=== PATIENT | male | born 1975 | race Caucasian/White ===

== ENCOUNTER 2021-08-07 16:19 | Observation (INO) | payer BC, SELFPAY ==
[2021-08-07] VITALS (9 sets, daily range): BP systolic 104–139; BP diastolic 55–87; PULSE 78–117; RESP 14–18; TEMP 36.4–37; O2SAT 96–100; BMI 31.5
--- NOTE | ~2021-08-07 | CT_ITS ---
EXAMINATION: CT HEAD WITHOUT CONTRAST CLINICAL INFORMATION: Sudden onset spinning, dizziness, nausea and vomiting. COMPARISON: None. TECHNIQUE: Contiguous axial imaging was performed from the skull base to vertex without intravenous administration of contrast. This CT examination was performed using dose optimization techniques as appropriate, variously including the following: *Automated exposure control *Adjustment of mA and/or kV according to patient size (this includes techniques or standardized protocols for targeted exams where dose is matched to indication/reason for exam; i.e. extremities or head) *Use of iterative reconstruction technique DLP: 746 mGy-cm FINDINGS: There is no evidence of acute intracranial hemorrhage or territorial infarction. No abnormal mass effect or midline shift is seen. Fisher to white matter differentiation is well preserved. No extra-axial fluid collections are identified. The ventricles are normal in size. There is no abnormal attenuation within the brain parenchyma. The osseous structures and soft tissues are normal. Mild mucosal thickening of the paranasal sinuses with a small air-fluid level in the right maxillary sinus. Right mastoid effusion. CT/CT head/brain wo con IMPRESSION: No acute intracranial pathology. Right mastoid effusion. Mild mucosal thickening of the paranasal sinuses.
[2021-08-07 16:48] LABS: MANUAL DIFF FLAG NO
[2021-08-07 16:52] LABS: Basophils Absolute Auto 0.1 X10*3/uL (0.0-0.2); Basophils Percent Auto 0.7 % (0-2); Eosinophils Absolute Auto 0.2 X10*3/uL (0.0-0.4); Eosinophils Percent Auto 1.4 % (0-4); Hematocrit 41.9 % (42-52); Hemoglobin 14.8 g/dl (14.0-18.0); Imm Gran Abs Auto 0.06 X10*3/uL (0.00-0.03); Imm Gran Pct Auto 0.5 % (0.0-0.4); Lymphocytes Percent Auto 31.2 % (20-40); Mean Corpuscular HGB Conc 35.3 g/dl (31.0-36.0); Mean Corpuscular Hemoglobin 28.1 pg (27.0-33.0); Mean Corpuscular Volume 79.5 fL (80-98); Mean Platelet Volume 10.4 fL (9.4-12.4); Monocytes Absolute Auto 1.5 X10*3/uL (0.1-1.2); Monocytes Percent Auto 11.4 % (2-11); Neutrophils Percent Auto 54.8 % (45-73); Platelet Count 374 X10*3/uL (160-400); Red Blood Count 5.27 X10*6/uL (4.60-5.80); Red Cell Distribution Width 12.8 % (11.0-16.0); White Blood Count 12.7 X10*3/uL (4.8-10.8)
--- NOTE | 2021-08-07 17:03 | ECG_ITS ---
Test Reason : DIZZINESS Blood Pressure : / mmHG Vent. Rate : 094 BPM Atrial Rate : 000 BPM P-R Int : 000 ms QRS Dur : 092 ms QT Int : 376 ms P-R-T Axes : 000 035 018 degrees QTc Int : 470 ms Normal sinus rhythm with short NM Nonspecific T wave abnormality Abnormal ECG No previous ECGs available Referred By: Trupti Garcia Electronically Signed By:CONSTANTINE LI MD
[2021-08-07 17:04] LABS: Alanine Aminotransferase 44 U/L (0-40); Albumin Level 4.2 g/dL (3.5-5.0); Alkaline Phosphatase 56 U/L (39-117); Anion Gap 18 (12-20); Aspartate Amino Transferase 23 U/L (5-37); Bilirubin Direct 0.2 mg/dL (0.0-0.5); Bilirubin Total 0.5 mg/dL (0.0-1.0); Blood Urea Nitrogen 18 mg/dL (9-16); Calcium 9.2 mg/dL (8.4-10.2); Carbon Dioxide 20 mmol/L (22-29); Chloride 103 mmol/L (96-108); Creatinine Clr Calc Pharmacy 95.8; Estimated Glomerular Filt Rate > 60; Glucose Random 153 mg/dL (60-115); Lipase 46 U/L (8-78); Potassium 3.4 mmol/L (3.3-5.1); Sodium 138 mmol/L (135-145); Total Protein 6.9 g/dL (6.5-8.0)
--- NOTE | 2021-08-07 17:11 | ED.NAVMDI ---
HPI - Nausea/Vomiting/Diarrhea General Chief complaint: Nausea/Vomiting/Diarrhea Stated complaint: NAUSEA VOMITING Time Seen by Provider: 08/07/21 16:51 Source: patient and EMS Mode of arrival: EMS History of Present Illness HPI Narrative: 46-year-old male with no significant past medical history BIBA with sudden onset room spinning dizziness, nausea, vomiting, and diarrhea 10-15 minutes s/p eating [facility]. Reports follow-up fine all day until eating. Denies ETOH/drug use. Admits dizziness worse with position changes/head movement, denies history of vertigo. Denies headache, vision change/loss, abdominal pain, falls/trauma, dysuria/hematuria, CP/SOB MD elicited complaint: nausea, vomiting and diarrhea Related Data Allergies Allergy/AdvReac Type Severity Reaction Status Date / Time No Known Allergies Allergy Verified 08/07/21 17:03 Review of Systems Review of Systems: Constitutional: No Fever, No Chills, No Fatigue, No Malaise ENT/Mouth: No Ear Pain, No Nasal Congestion, No Hoarseness, No sore throat Eyes: No Eye Pain, No Swelling, No Redness, No Discharge, No Vision Changes Cardiovascular: No Chest Pain, No SOB, No Palpitations Respiratory: No Cough, No Dyspnea Gastrointestinal: + Nausea, + Vomiting, + Diarrhea, No Constipation, + Abdominal pain Genitourinary: No Dysuria, No Urinary Frequency, No Hematuria, No Flank Pain, No Hesitancy Musculoskeletal: No joint pain, No Myalgias, No Joint Swelling Skin: No Skin Lesions, No rash Neuro: + Weakness, No Numbness, No Paresthesias, No Loss of Consciousness, + Dizziness, No Headache Yes all other systems are reviewed and are negative [facility] Past Medical History Attestation statement: The following information was validated with the patient. Social History Social History Advance Directives: No Advance Directives Information Provided: No Physical Exam Vital Signs: Vital Signs: Last Vital Signs Temp 98.6 F 08/07/21 21:44 Pulse 78 08/07/21 21:44 Resp 17 08/07/21 21:44 BP 124/61 08/07/21 21:44 Pulse Ox 97 08/07/21 21:44 Body Mass Index 31.5 Const: Other: Actively vomiting/dry heaving on exam General: cooperative, alert and awake Orientation/consciousness: patient oriented x3 Limitations: no limitations HENMT: Other: Right TM dull, not erythematous, no effusion Head: Yes normal to inspection and Yes atraumatic Ears: hearing grossly normal bilaterally General nose exam: Normal external nose present Face and sinus: Yes normal facial exam Mouth: Normal oral and palatal mucosa present Throat: Yes posterior oropharynx normal Eyes: Other: Left-sided horizontal nystagmus General: appearance normal, both eyes and all related structures Pupils: Equal, round and reactive pupils present EOM: EOMs intact bilaterally Neck: Neck: Yes normal visual inspection and Yes no meningeal signs Resp: Effort & Inspection: normal respiratory effort Auscultation: clear to auscultation bilaterally, no rales, no rhonchi and no wheezes Cardio: Rate: regular rate and tachycardic Heart sounds: S1 normal heart sound present and S2 normal heart sound present GI: Inspection: Yes normal to inspection Palpation (GI): Soft to palpation, nontender, no guarding and not rigid Skin: Rashes: no rashes Wounds: no wounds Neuro: Other: Dizziness elicited on head movement/position change General: patient oriented x3, tone normal, moves all extremities, no meningeal signs, no focal motor deficits and CN's II-XI intact bilaterally Cranial nerves: Yes CN's II-XII intact bilaterally and Yes Equal, round and reactive pupils present Gait exam (Neuro): Normal gait present Motor exam (neuro): 5/5 motor strength present throughout and Pronator motor function not present Coordination: [id number] test normal Romberg Test: Negative Extrem: General: Yes normal to inspection and Yes no pedal edema Course Course Course Narrative: -172--mild leukocytosis of 12.7 likely reactive from retching/emesis, BUN 18, ALT mildly elevated -troponin negative, UA not infected however 40 ketones, drug screen negative CT head/brain wo con IMPRESSION: No acute intracranial pathology. Right mastoid effusion. Mild mucosal thickening of the paranasal sinuses. >> no evidence of active OM at this time, chronic issues per patient > On re-evaluation patient reports minimal symptomatic improvement, just received Benadryl/Reglan, will re-evaluate -2140--On re-evaluation after Ativan patient reports mild symptomatic improvement, still very dizzy with any position change, unable to sit up/stand or ambulate. Plan is for admission for further management MDM - Nausea/Vomiting/Diarrhea MDM Narrative Medical decision making narrative: 46-year-old male with no significant past medical history BIBA with sudden onset room spinning dizziness, nausea, vomiting, and diarrhea 10-15 minutes s/p eating [employer]. On exam tachycardic likely from active vomiting/retching on exam, diaphoretic/pale, no focal neuro deficits, left sided horizontal nystagmus appreciated, lungs CTA, abdomen soft/nontender. Right TM dull patient reports chronic right ear issues, denies pain at this time. for food poisoning/gastroenteritis vs BPPV vs ?SAH although lower concern. Rule out atypical ACS Plan: EKG, labs, UA, MONIQUE, IVF, symptomatic treatment, head CT, re-evaluate Medical Records Attestation: I reviewed the patient's medical records. Lab Data Attestation: I reviewed the patient's lab results. Result diagrams: 08/07/21 16:39 08/07/21 16:39 Labs: Lab Results 08/07/21 08/07/21 08/07/21 Range/Units 16:39 16:39 16:39 WBC 12.7 H (4.8-10.8) X10*3/uL RBC 5.27 (4.60-5.80) X10*6/uL Hgb 14.8 (14.0-18.0) g/dl Hct 41.9 L (42-52) % MCV 79.5 L (80-98) fL MCH 28.1 (27.0-33.0) pg MCHC 35.3 (31.0-36.0) g/dl RDW 12.8 (11.0-16.0) % Plt Count 374 (160-400) X10*3/uL MPV 10.4 (9.4-12.4) fL Immature Gran % (Auto) 0.5 H (0.0-0.4) % Neut % (Auto) 54.8 (45-73) % Lymph % (Auto) 31.2 (20-40) % Bertie % (Auto) 11.4 H (2-11) % Eos % (Auto) 1.4 (0-4) % Baso % (Auto) 0.7 (0-2) % Lymph # (Auto) 4.0 (1.2-4.9) X10*3/uL Bertie # (Auto) 1.5 H (0.1-1.2) X10*3/uL Eos # (Auto) 0.2 (0.0-0.4) X10*3/uL Baso # (Auto) 0.1 (0.0-0.2) X10*3/uL Abs Immat Gran (auto) 0.06 H (0.00-0.03) X10*3/uL Absolute Neuts (auto) 7.0 (2.0-8.3) X10*3/uL Absolute Nucleated RBC 0.000 (0.0-0.012) X10*3/uL Nucleated RBC % (auto) 0.0 (0.0-0.2) /100WBC Sodium 138 (135-145) mmol/L Potassium 3.4 (3.3-5.1) mmol/L Chloride 103 (96-108) mmol/L Carbon Dioxide 20 L (22-29) mmol/L Anion Gap 18 (12-20) BUN 18 H (9-16) mg/dL Creatinine 1.14 (0.5-1.4) mg/dL Estim Creat Clear Calc 95.8 Estimated GFR > 60 Random Glucose 153 H (60-115) mg/dL Calcium 9.2 (8.4-10.2) mg/dL Magnesium 1.9 (1.6-2.6) mg/dL Total Bilirubin 0.5 (0.0-1.0) mg/dL Direct Bilirubin 0.2 (0.0-0.5) mg/dL AST 23 (5-37) U/L ALT 44 H (0-40) U/L Alkaline Phosphatase 56 (39-117) U/L Troponin I High Sens (<3.5-35.0) ng/L Total Protein 6.9 (6.5-8.0) g/dL Albumin 4.2 (3.5-5.0) g/dL Lipase 46 (8-78) U/L Urine Color Urine Appearance Urine pH (5.0-8.0) Ur Specific [place] (1.005-1.025) Urine Protein (NEG-TRACE) MG/DL Urine Glucose (UA) (NEG) MG/DL Urine Ketones (NEG) MG/DL Urine Blood (NEG) Urine Nitrite (NEG) Ur Leukocyte Esterase (NEG) Urine Opiates Screen (Not Detect) Urine Fentanyl Screen (Not Detect) Ur Barbiturates Screen (Not Detect) Ur Phencyclidine Scrn (Not Detect) Ur Amphetamines Screen (Not Detect) U Benzodiazepines Scrn (Not Detect) Urine Cocaine Screen (Not Detect) U Marijuana (THC) Screen (Not Detect) Ethyl Alcohol < 10 mg/dL 08/07/21 08/07/21 08/07/21 Range/Units 16:39 18:45 18:45 WBC (4.8-10.8) X10*3/uL RBC (4.60-5.80) X10*6/uL Hgb (14.0-18.0) g/dl Hct (42-52) % MCV (80-98) fL MCH (27.0-33.0) pg MCHC (31.0-36.0) g/dl RDW (11.0-16.0) % Plt Count (160-400) X10*3/uL MPV (9.4-12.4) fL Immature Gran % (Auto) (0.0-0.4) % Neut % (Auto) (45-73) % Lymph % (Auto) (20-40) % Bert[place] % (Auto) (2-11) % Eos % (Auto) (0-4) % Baso % (Auto) (0-2) % Lymph # (Auto) (1.2-4.9) X10*3/uL [place] # (Auto) (0.1-1.2) X10*3/uL Eos # (Auto) (0.0-0.4) X10*3/uL Baso # (Auto) (0.0-0.2) X10*3/uL Abs Immat Gran (auto) (0.00-0.03) X10*3/uL Absolute Neuts (auto) (2.0-8.3) X10*3/uL Absolute Nucleated RBC (0.0-0.012) X10*3/uL Nucleated RBC % (auto) (0.0-0.2) /100WBC Sodium (135-145) mmol/L Potassium (3.3-5.1) mmol/L Chloride (96-108) mmol/L Carbon Dioxide (22-29) mmol/L Anion Gap (12-20) BUN (9-16) mg/dL Creatinine (0.5-1.4) mg/dL Estim Creat Clear Calc Estimated GFR Random Glucose (60-115) mg/dL Calcium (8.4-10.2) mg/dL Magnesium (1.6-2.6) mg/dL Total Bilirubin (0.0-1.0) mg/dL Direct Bilirubin (0.0-0.5) mg/dL AST (5-37) U/L ALT (0-40) U/L Alkaline Phosphatase (39-117) U/L Troponin I High Sens < 3.5 (<3.5-35.0) ng/L Total Protein (6.5-8.0) g/dL Albumin (3.5-5.0) g/dL Lipase (8-78) U/L Urine Color YELLOW Urine Appearance CLEAR Urine pH 6.0 (5.0-8.0) Ur Specific [place] 1.025 (1.005-1.025) Urine Protein NEG (NEG-TRACE) MG/DL Urine Glucose (UA) NEG (NEG) MG/DL Urine Ketones 40 (NEG) MG/DL Urine Blood NEG (NEG) Urine Nitrite NEG (NEG) Ur Leukocyte Esterase NEG (NEG) Urine Opiates Screen Not Detected (Not Detect) Urine Fentanyl Screen Not Detected (Not Detect) Ur Barbiturates Screen Not Detected (Not Detect) Ur Phencyclidine Scrn Not Detected (Not Detect) Ur Amphetamines Screen Not Detected (Not Detect) U Benzodiazepines Scrn Not Detected (Not Detect) Urine Cocaine Screen Not Detected (Not Detect) U Marijuana (THC) Screen Not Detected (Not Detect) Ethyl Alcohol mg/dL ECG Data Attestation: I personally reviewed and interpreted this ECG as follows: ECG interpretation date: 08/07/21 ECG interpretation time: 18:35 Interpretation: EKG normal sinus rhythm at a rate of 94. Artifact present. No STEMI. QTC 470 Discharge Plan Discharge Clinical Impression: Food poisoning, Benign paroxysmal positional vertigo Patient Disposition: Admitted As Inpatient
[2021-08-07] MEDS: Famotidine/PF 20 MG/2 ML VIAL IVPUSH (17:20)
[2021-08-07] MEDS: 0.9 % Sodium Chloride 1,000 ML 999 ML IVCONT ×2 (17:20→18:35)
[2021-08-07 17:27] LABS: Ethanol < 10 mg/dL
[2021-08-07 17:28] LABS: Magnesium 1.9 mg/dL (1.6-2.6)
[2021-08-07] MEDS: ondansetron HCL 4 MG/2 ML VIAL IVPUSH (17:35)
[2021-08-07 17:37] LABS: Troponin-I High Sensitivity < 3.5 ng/L (<3.5-35.0)
[2021-08-07] MEDS: Meclizine HCl 25 MG TABLET PO (18:06)
[2021-08-07] MEDS: diphenhydrAMINE HCL 50 MG/ML VIAL 12.5 MG IVPUSH (18:36)
[2021-08-07] MEDS: Metoclopramide HCl 10 MG/2 ML VIAL IVPUSH (18:36)
[2021-08-07 18:51] LABS: Appearance Urine CLEAR; Color Urine YELLOW; Glucose Urine UA NEG (NEG); Leukocyte Esterase Urine NEG (NEG); Nitrite Urine NEG (NEG); Specific Gravity - Urine 1.025 (1.005-1.025); Urine Blood NEG (NEG); Urine Ketones 40 MG/DL (NEG); Urine Protein NEG (NEG-TRACE)
[2021-08-07 19:06] LABS: Amphetamine Screen Urine Not Detected (Not Detect); Barbiturates, Urine Not Detected (Not Detect); Benzodiazepines Screen Urine Not Detected (Not Detect); Cannabinoid Screen Urine Not Detected (Not Detect); Cocaine Screen Urine Not Detected (Not Detect); Fentanyl, urine Not Detected (Not Detect); Opiate Screen Urine Not Detected (Not Detect); Phencyclidine Screen Urine Not Detected (Not Detect)
[2021-08-07] MEDS: LORazepam 1 MG TABLET PO (20:06)
[2021-08-07 22:04] LABS: COVID-19 Test Positive (Negative); IDNOW Serial# 08D9AD1C
--- NOTE | 2021-08-07 22:12 | P.HPHOSP_ITS ---
History of Present Illness Date of Service: 08/07/21 Chief Complaint: Nausea and vomiting 46-year-old male with a past medical history of chronic back pain, sciatica presented to the hospital with a chief complaint of nausea vomiting/dizziness. Patient reported that he went to [facility] to eat and few minutes later he developed nausea and vomiting, had multiple episodes of profuse vomiting; followed by had dizziness like the room spinning and subsequently called the EMS and presented to the hospital for further evaluation. Denies any chest pain or palpitations at the time of the episode. Reports he had multiple episodes of vomiting; denies any blood in the vomitus. Denies any diarrhea. Denies any abdominal pain. Denies any urinary symptoms. Review of all other systems is negative except mentioned above ER course: Per ER team patient's findings; lab showed mild leukocytosis likely reactive; patient was given IV fluids and meclizine. Patient still continuously dizzy/concern for vertigo not improving. Admitted to the hospital for further management. FOR[facility]LY [facility] Pertinent family history: Reviewed Social History Alcohol intake: never Patient Tobacco Use Status: Never used Tobacco Use of substances other than those prescribed or required for medical reasons: No Advance Directives: No Advance Directives Information Provided: No Meds Allergies Allergy/AdvReac Type Severity Reaction Status Date / Time No Known Allergies Allergy Verified 08/07/21 17:03 Home Medications Medication Instructions Recorded Confirmed Last Taken Type No Known Home Meds 08/07/21 08/07/21 Unknown History Physical Exam Vital Signs and Narrative: Vital Signs: Last Vital Signs Temp 98.6 F 08/07/21 21:44 Pulse 78 08/07/21 21:44 Resp 17 08/07/21 21:44 BP 124/61 08/07/21 21:44 Pulse Ox 97 08/07/21 21:44 Body Mass Index 31.5 Gen: Appears be in no acute distress HEENT: NCAT, Moist mucosa. Pulmonary: Vesicular breath sounds, fair air entry CVS: Normal S1-S2 Abdomen: BS+, Soft, Nontender Extremities: Warm well perfused Neuro: Alert and awake. Grossly nonfocal Results Labs CBC and Chem 7: 08/07/21 16:39 08/07/21 16:39 Labs: Laboratory Results - last 24 hr 08/07/21 08/07/21 08/07/21 16:39 16:39 16:39 MCV 79.5 L MCH 28.1 MCHC 35.3 RDW 12.8 Plt Count 374 MPV 10.4 Immature Gran % (Auto) 0.5 H Neut % (Auto) 54.8 Lymph % (Auto) 31.2 [place] % (Auto) 11.4 H Eos % (Auto) 1.4 Baso % (Auto) 0.7 Lymph # (Auto) 4.0 [place] # (Auto) 1.5 H Eos # (Auto) 0.2 Baso # (Auto) 0.1 Abs Immat Gran (auto) 0.06 H Absolute Neuts (auto) 7.0 Absolute Nucleated RBC 0.000 Nucleated RBC % (auto) 0.0 Anion Gap 18 Estim Creat Clear Calc 95.8 Estimated GFR > 60 Random Glucose 153 H Calcium 9.2 Magnesium 1.9 Total Bilirubin 0.5 Direct Bilirubin 0.2 AST 23 ALT 44 H Alkaline Phosphatase 56 Troponin I High Sens Total Protein 6.9 Albumin 4.2 Lipase 46 Urine Color Urine Appearance Urine pH Ur Specific [place] Urine Protein Urine Glucose (UA) Urine Ketones Urine Blood Urine Nitrite Ur Leukocyte Esterase Urine Opiates Screen Urine Fentanyl Screen Ur Barbiturates Screen Ur Phencyclidine Scrn Ur Amphetamines Screen U Benzodiazepines Scrn Urine Cocaine Screen U Marijuana (THC) Screen Ethyl Alcohol < 10 COVID-19 (ROSS) COVID-19 Clin Com 08/07/21 08/07/21 08/07/21 16:39 18:45 18:45 MCV MCH MCHC RDW Plt Count MPV Immature Gran % (Auto) Neut % (Auto) Lymph % (Auto) [place] % (Auto) Eos % (Auto) Baso % (Auto) Lymph # (Auto) [place] # (Auto) Eos # (Auto) Baso # (Auto) Abs Immat Gran (auto) Absolute Neuts (auto) Absolute Nucleated RBC Nucleated RBC % (auto) Anion Gap Estim Creat Clear Calc Estimated GFR Random Glucose Calcium Magnesium Total Bilirubin Direct Bilirubin AST ALT Alkaline Phosphatase Troponin I High Sens < 3.5 Total Protein Albumin Lipase Urine Color YELLOW Urine Appearance CLEAR Urine pH 6.0 Ur Specific [place] 1.025 Urine Protein NEG Urine Glucose (UA) NEG Urine Ketones 40 Urine Blood NEG Urine Nitrite NEG Ur Leukocyte Esterase NEG Urine Opiates Screen Not Detected Urine Fentanyl Screen Not Detected Ur Barbiturates Screen Not Detected Ur Phencyclidine Scrn Not Detected Ur Amphetamines Screen Not Detected U Benzodiazepines Scrn Not Detected Urine Cocaine Screen Not Detected U Marijuana (THC) Screen Not Detected Ethyl Alcohol COVID-19 (ROSS) COVID-19 Clin Com 08/07/21 21:50 MCV MCH MCHC RDW Plt Count MPV Immature Gran % (Auto) Neut % (Auto) Lymph % (Auto) [place] % (Auto) Eos % (Auto) Baso % (Auto) Lymph # (Auto) [place] # (Auto) Eos # (Auto) Baso # (Auto) Abs Immat Gran (auto) Absolute Neuts (auto) Absolute Nucleated RBC Nucleated RBC % (auto) Anion Gap Estim Creat Clear Calc Estimated GFR Random Glucose Calcium Magnesium Total Bilirubin Direct Bilirubin AST ALT Alkaline Phosphatase Troponin I High Sens Total Protein Albumin Lipase Urine Color Urine Appearance Urine pH Ur Specific [place] Urine Protein Urine Glucose (UA) Urine Ketones Urine Blood Urine Nitrite Ur Leukocyte Esterase Urine Opiates Screen Urine Fentanyl Screen Ur Barbiturates Screen Ur Phencyclidine Scrn Ur Amphetamines Screen U Benzodiazepines Scrn Urine Cocaine Screen U Marijuana (THC) Screen Ethyl Alcohol COVID-19 (ROSS) Positive A COVID-19 Clin Com See Note Imaging Radiologist's Impressions: Impressions Head CT 08/07/21 17:06 IMPRESSION: No acute intracranial pathology. Right mastoid effusion. Mild mucosal thickening of the paranasal sinuses. Assessment and Plan (1) Food poisoning: Status: Acute (2) Benign paroxysmal positional vertigo: Qualifiers: Laterality: unspecified laterality Qualified Code(s): H81.10 - Benign paroxysmal vertigo, unspecified ear Status: Acute 46-year-old male with a past medical history of chronic back pain, sciatica presented to the hospital with a chief complaint of nausea vomiting/dizziness. Nausea/vomiting: Abdominal exam benign. Gastroenteritis. Supportive care. IV fluids. Clear liquid diet -advanced as tolerated. Dizziness: Reports room spinning. Exam nonfocal. CT head showed no acute findings. Meclizine trial. Fall precautions. Chronic back pain: Denies any new change. DVT prophylaxis: SCD boots Code status: Full code Quality Stroke Does the patient have a stroke diagnosis?: No VTE Prior VTE?: No VTE Risk Level:: Medical - moderate - high VTE Device Contraindication: N/A - Device Ordered VTE Drug Contraindication: Treatment Not Indicated
[2021-08-07] MEDS: Dextrose 5 % and 0.9 % NaCl 1,000 ML 100 ML IVCONT (22:43)
[2021-08-08] VITALS (10 sets, daily range): BP systolic 112–156; BP diastolic 59–81; PULSE 68–100; RESP 12–28; TEMP 36.6–36.7; O2SAT 97–99
[2021-08-08 07:31] LABS: MANUAL DIFF FLAG NO
[2021-08-08 07:38] LABS: Basophils Percent Auto 0.4 % (0-2); Eosinophils Percent Auto 0.2 % (0-4); Hematocrit 39.5 % (42-52); Hemoglobin 14.1 g/dl (14.0-18.0); Imm Gran Abs Auto 0.02 X10*3/uL (0.00-0.03); Imm Gran Pct Auto 0.2 % (0.0-0.4); Lymphocytes Absolute Auto 1.3 X10*3/uL (1.2-4.9); Lymphocytes Percent Auto 15.9 % (20-40); Mean Corpuscular HGB Conc 35.7 g/dl (31.0-36.0); Mean Corpuscular Hemoglobin 28.3 pg (27.0-33.0); Mean Corpuscular Volume 79.3 fL (80-98); Mean Platelet Volume 10.7 fL (9.4-12.4); Monocytes Absolute Auto 0.8 X10*3/uL (0.1-1.2); Monocytes Percent Auto 10.3 % (2-11); Platelet Count 270 X10*3/uL (160-400); Red Blood Count 4.98 X10*6/uL (4.60-5.80); Red Cell Distribution Width 13.1 % (11.0-16.0); White Blood Count 8.2 X10*3/uL (4.8-10.8)
[2021-08-08 07:49] LABS: Anion Gap 12 (12-20); Blood Urea Nitrogen 11 mg/dL (9-16); Calcium 8.8 mg/dL (8.4-10.2); Carbon Dioxide 21 mmol/L (22-29); Chloride 109 mmol/L (96-108); Creatinine Clr Calc Pharmacy 120.1; Estimated Glomerular Filt Rate > 60; Glucose Random 122 mg/dL (60-115); Potassium 3.9 mmol/L (3.3-5.1); Sodium 138 mmol/L (135-145)
--- NOTE | 2021-08-08 07:52 | P.PNIM_ITS ---
Subjective Subjective Date of Service: 08/09/21 Interval History: f/u n/v now better, +covid since July 16, vertigo positional type Review of Systems n/v vertigo Physical Exam Vital Signs: Vital Signs: Last Vital Signs Temp 98 F 08/08/21 02:59 Pulse 100 08/08/21 06:12 Resp 12 08/08/21 06:12 BP 125/69 08/08/21 06:12 Pulse Ox 98 08/08/21 02:59 Body Mass Index 31.5 Const: Other: General: AO X 3, no acute distress Resp: normal effort CVS: S1,S2,RRR GI: +BS, NT, no distention Skin: No rash Neuro: motor grossly intact Psych: appropriate affect Objective Data Active Medications Acetaminophen (Acetaminophen 325 Mg Tablet) 650 mg PO Q6H PRN PRN Reason: Pain, Mild (Pain Scale 1-3) Dextrose/Sodium Chloride (D5ns) 1,000 mls @ 100 mls/hr IVCONT .Q10H [facility] Last Admin: 08/07/21 22:43 Dose: 100 mls/hr Documented by: NICOLETTE Meclizine HCl (Meclizine Hcl 25 Mg Tablet) 25 mg PO Q8H PRN PRN Reason: dizziness Melatonin (Melatonin 3 Mg Tablet) 6 mg PO BEDTIME PRN PRN Reason: Insomnia Ondansetron HCl (Ondansetron Hcl 4 Mg/2 Ml Vial) 4 mg IVPUSH Q8H PRN PRN Reason: Nausea and Vomiting Senna (Sennosides 8.6 Mg Tablet) 17.2 mg PO BEDTIME PRN PRN Reason: Constipation Sodium Chloride (0.9 % Sodium Chloride Flush 3 Ml Syringe) 3 ml IVFLUSH QSHIFT [facility] Last Admin: 08/08/21 03:10 Dose: Not Given Documented by: LAUREN Non-Admin Reason: IV Running Labs CBC & Chem 7: 08/08/21 07:19 08/08/21 07:19 Labs: Laboratory Results - last 24 hr 08/07/21 08/07/21 08/07/21 16:39 16:39 16:39 MCV 79.5 L MCH 28.1 MCHC 35.3 RDW 12.8 Plt Count 374 MPV 10.4 Immature Gran % (Auto) 0.5 H Neut % (Auto) 54.8 Lymph % (Auto) 31.2 [place] % (Auto) 11.4 H Eos % (Auto) 1.4 Baso % (Auto) 0.7 Lymph # (Auto) 4.0 [place] # (Auto) 1.5 H Eos # (Auto) 0.2 Baso # (Auto) 0.1 Abs Immat Gran (auto) 0.06 H Absolute Neuts (auto) 7.0 Absolute Nucleated RBC 0.000 Nucleated RBC % (auto) 0.0 Anion Gap 18 Estim Creat Clear Calc 95.8 Estimated GFR > 60 Random Glucose 153 H Calcium 9.2 Magnesium 1.9 Total Bilirubin 0.5 Direct Bilirubin 0.2 AST 23 ALT 44 H Alkaline Phosphatase 56 Troponin I High Sens Total Protein 6.9 Albumin 4.2 Lipase 46 Urine Color Urine Appearance Urine pH Ur Specific [place] Urine Protein Urine Glucose (UA) Urine Ketones Urine Blood Urine Nitrite Ur Leukocyte Esterase Urine Opiates Screen Urine Fentanyl Screen Ur Barbiturates Screen Ur Phencyclidine Scrn Ur Amphetamines Screen U Benzodiazepines Scrn Urine Cocaine Screen U Marijuana (THC) Screen Ethyl Alcohol < 10 COVID-19 (ROSS) COVIDDoubloon 08/07/21 08/07/21 08/07/21 16:39 18:45 18:45 MCV MCH MCHC RDW Plt Count MPV Immature Gran % (Auto) Neut % (Auto) Lymph % (Auto) [place] % (Auto) Eos % (Auto) Baso % (Auto) Lymph # (Auto) [place] # (Auto) Eos # (Auto) Baso # (Auto) Abs Immat Gran (auto) Absolute Neuts (auto) Absolute Nucleated RBC Nucleated RBC % (auto) Anion Gap Estim Creat Clear Calc Estimated GFR Random Glucose Calcium Magnesium Total Bilirubin Direct Bilirubin AST ALT Alkaline Phosphatase Troponin I High Sens < 3.5 Total Protein Albumin Lipase Urine Color YELLOW Urine Appearance CLEAR Urine pH 6.0 Ur Specific [place] 1.025 Urine Protein NEG Urine Glucose (UA) NEG Urine Ketones 40 Urine Blood NEG Urine Nitrite NEG Ur Leukocyte Esterase NEG Urine Opiates Screen Not Detected Urine Fentanyl Screen Not Detected Ur Barbiturates Screen Not Detected Ur Phencyclidine Scrn Not Detected Ur Amphetamines Screen Not Detected U Benzodiazepines Scrn Not Detected Urine Cocaine Screen Not Detected U Marijuana (THC) Screen Not Detected Ethyl Alcohol COVID-19 (ROSS) COVIDDoubloon 1008/08/21 08/08/21 21:50 07:19 07:19 MCV 79.3 L MCH 28.3 MCHC 35.7 RDW 13.1 Plt Count 270 D MPV 10.7 Immature Gran % (Auto) 0.2 Neut % (Auto) 73.0 Lymph % (Auto) 15.9 L [place] % (Auto) 10.3 Eos % (Auto) 0.2 Baso % (Auto) 0.4 Lymph # (Auto) 1.3 [place] # (Auto) 0.8 Eos # (Auto) 0.0 Baso # (Auto) 0.0 Abs Immat Gran (auto) 0.02 Absolute Neuts (auto) 6.0 Absolute Nucleated RBC 0.000 Nucleated RBC % (auto) 0.0 Anion Gap 12 Estim Creat Clear Calc 120.1 Estimated GFR > 60 Random Glucose 122 H Calcium 8.8 Magnesium Total Bilirubin Direct Bilirubin AST ALT Alkaline Phosphatase Troponin I High Sens Total Protein Albumin Lipase Urine Color Urine Appearance Urine pH Ur Specific [place] Urine Protein Urine Glucose (UA) Urine Ketones Urine Blood Urine Nitrite Ur Leukocyte Esterase Urine Opiates Screen Urine Fentanyl Screen Ur Barbiturates Screen Ur Phencyclidine Scrn Ur Amphetamines Screen U Benzodiazepines Scrn Urine Cocaine Screen U Marijuana (THC) Screen Ethyl Alcohol COVID-19 (ROSS) Positive A COVID-19 Clin Com See Note Assessment and Plan (1) Food poisoning: Status: Acute (2) Benign paroxysmal positional vertigo: Status: Acute Assessment and Plan: 46-year-old male with a past medical history of chronic back pain, sciatica presented to the hospital with a chief complaint of nausea vomiting/dizziness. Nausea/vomiting: Abdominal exam benign.? Gastroenteritis.? Supportive care.? IV fluids.? Clear liquid diet -advanced as tolerated. Dizziness: Reports room spinning.? Exam nonfocal.? CT head showed no acute findings.? Meclizine trial.? Fall precautions. ? Chronic back pain:? Denies any new change. covid + since july 16, no covid symptoms Quality Stroke Does the patient have a stroke diagnosis?: No VTE Prior VTE?: No VTE Risk Level:: Medical - moderate - high VTE Device Contraindication: N/A - Device Ordered VTE Drug Contraindication: Treatment Not Indicated
[2021-08-08] MEDS: Dextrose 5 % and 0.9 % NaCl 1,000 ML 100 ML IVCONT ×2 (08:21→19:53)
--- NOTE | 2021-08-08 08:24 | PC.NURSE ---
this rn in to see pt after priya was speaking with . pt re situated and vitaled. new urinal given. iv taken down d/t not being on a pump. new bag hung per emar. pt updated on plan of care.
[2021-08-08] MEDS: Meclizine HCl 25 MG TABLET PO ×2 (08:37→15:36)
--- NOTE | 2021-08-08 10:32 | MHC.CM.PN ---
Met with patient in regards to discharge planning. Patient lives with his and kids, ambulates independently and had no services prior to coming to the hospital. No services anticipated to be needed because patient is not homebound. Patient received no Covid vaccines because he was receiving cortisone injections for his back before surgery scheduled in August. Patient tested postiive for Covid on 07/17. He returned to work on Wed08/07. He took his son to hockey practice on 08/08 and ate at [facility]. He became ill about 30 mins later and came to the hospital. Obs notice explained and signed. HCP completed, signed and witnessed. Original given to patient. Copy placed in chart. Patient's will transport him home when medically stable. Continue to monitor for d/c needs.
--- NOTE | 2021-08-08 13:45 | PC.NURSE ---
patient a&ox3, pt tearful upon this nurse entering the room stating it was because he is alone in the hospital and doesnt see anybody for 2 hrs at a time. patient was given lunch, ivf running per order, pt also given a warm washcloth and wipes per his request, will continue to monitor.
[2021-08-08] MEDS: ondansetron HCL 4 MG/2 ML VIAL IVPUSH (15:36)
--- NOTE | 2021-08-08 15:38 | PC.NURSE ---
patient a&ox3, ate only about 10% of lunch- pudding and juice, c/o nausea and dizziness, pt medicated per order, environmental monitoring technician nsr, vss, will continue to monitor.
--- NOTE | 2021-08-08 17:46 | PC.NURSE ---
pt a&ox3, cardiac catheterization technician nsr 60s-70s, pt given warm blankets for comfort, call miranda within reach, will continue to monitor.
--- NOTE | 2021-08-08 20:08 | PC.NURSE ---
report given to floor
[2021-08-08] MEDS: 0.9 % Sodium Chloride Flush 3 ML SYRINGE IVFLUSH (22:24)
[2021-08-08] MEDS: diphenhydrAMINE HCL 25 MG TABLET PO (22:24)
[2021-08-09] MEDS: Dextrose 5 % and 0.9 % NaCl 1,000 ML 100 ML IVCONT (02:11)
[2021-08-09 03:31] VITALS: BP 122/66; PULSE 84; RESP 14; TEMP 36.9; O2SAT 97
[2021-08-09 08:00] VITALS: BP 133/83; PULSE 77; RESP 20; TEMP 37.1; O2SAT 96
--- NOTE | 2021-08-09 11:28 | P.DS_ITS ---
DS: Providers Provider Date of Service: 08/09/21 Date of admission: 08/07/21 22:10 Primary care physician: Terrence Parra MD DS: Diagnosis Discharge Diagnosis (1) Food poisoning: Status: Acute (2) Benign paroxysmal positional vertigo: Status: Acute DS: Summary Hospital Course Hospital Course: Chief Complaint: Nausea and vomiting 46-year-old male with a past medical history of chronic back pain, sciatica presented to the hospital with a chief complaint of nausea vomiting/dizziness. Patient reported that he went to [facility] to eat? and few minutes later he developed nausea and vomiting, had multiple episodes of profuse vomiting; followed by had dizziness like the room spinning and subsequently called the EMS and presented to the hospital for further evaluation. Denies any chest pain or palpitations at the time of the episode. Reports he had multiple episodes of vomiting; denies any blood in the vomitus.? Denies any diarrhea.? Denies any abdominal pain. Denies any urinary symptoms. Review of all other systems is negative except mentioned above ER course:? Per ER team patient's findings; lab showed mild leukocytosis likely reactive; patient was given IV fluids and meclizine.? Patient still continuously dizzy/concern for vertigo not improving.? Admitted to the hospital for further management. Hospital course: Patient was observed and hydrated and conservatively treated for nausea and vomitting which has resolved, diet is advanced and is tolerating. As for vertigo may possibly have viral labyrinthitis and seemed to be resolving, he's been getting Meclizine PRN and is epxected to make full recover. Time Spent with Patient Time attestation: Total time spent providing and/or coordinating discharge services: Discharge coordination time: Greater than 30 minutes Quality: Stroke Does the patient have a stroke diagnosis?: No Physical Exam Vital Signs: Vital Signs: Last Vital Signs Temp 98.7 F 08/09/21 08:00 Pulse 77 08/09/21 08:00 Resp 20 08/09/21 08:00 BP 133/83 08/09/21 08:00 Pulse Ox 96 08/09/21 08:00 Body Mass Index 31.5 Discharge Plan Discharge Patient Disposition: Home, Self-Care Discharge Diagnosis: Nausea, vomitting, vertigo Referrals: Terrence Parra MD [Primary Care Provider] - 1 Week Discharge Medications: New meclizine 25 mg Tablet 25 mg PO Q8H PRN (Reason: dizziness) Qty: 10 RF: 0 Discharge Orders: Discharge Order (Routine); Ordered 08/09/21 Ordered By: Torin Ramirez Diet: advance to usual diet Activity on Discharge: As tolerated Stand Alone Forms: Patient Portal Discharge page Care Plan Goals: Full recovery from food poisoning and vertigo Health Concerns: food poisoning Plan of Treatment: Drink plenty of fluid, take Meclizine for vertigo Assessment: As above Discharge Date/Time: 08/09/21 13:19
[2021-08-09 11:51] VITALS: BP 137/72; PULSE 75; RESP 16; TEMP 36.9; O2SAT 98
--- NOTE | 2021-08-09 12:04 | MHC.CM.PN ---
home no servceis
== END 2021-08-09 13:19 | disposition home or self-care (01) ==
LOC: HO.ED 21:52 → HO.EDOVER 22:20 → HO.IMC 08-08 18:39
PROVIDERS: Physician Assistant; Admitting Provider Hospitalist; Emergency Provider Emergency Medicine; PCP Internal Medicine; Visit Provider Internal Medicine
DX: A05.9 Bacterial foodborne intoxication, unspecified (principal); H81.10 Benign paroxysmal vertigo, unspecified ear; R11.2 Nausea with vomiting, unspecified; D72.829 Elevated white blood cell count, unspecified; H70.91 Unspecified mastoiditis, right ear; J32.3 Chronic sphenoidal sinusitis; G89.29 Other chronic pain; M54.40 Lumbago with sciatica, unspecified side; R94.31 Abnormal electrocardiogram [ECG] [EKG]; Z20.822 Contact with and (suspected) exposure to COVID-19
CPT/HCPCS: 36415; 70450; 80048; 80076; 80307; 81003; 82077; 83690; 83735; 84484; 85025; 87635; 93005; 96361; 96374; 96375; 96376; 99219; 99285; J1200; J2405; J2765; Q0163

== ENCOUNTER → 2025-07-24 13:07 | Outpatient (BNVA) | payer OTHER, SELFPAY | PROVIDERS: PCP Internal Medicine; Visit Provider Registered Nurse | DX: S80.01XA Contusion of right knee, initial encounter (principal); W22.09XA Striking against other stationary object, initial encounter | CPT/HCPCS: 99202 ==

== ENCOUNTER → 2025-07-30 14:09 | Outpatient (BNVA) | payer OTHER, SELFPAY | PROVIDERS: PCP Internal Medicine; Visit Provider Emergency Medicine | DX: S80.01XA Contusion of right knee, initial encounter (principal); W22.09XA Striking against other stationary object, initial encounter | CPT/HCPCS: 99213 ==